=== PATIENT | male | born 1975 | race Caucasian/White ===

== ENCOUNTER 2024-03-05 05:53 | Emergency (ER) | payer SELFPAY ==
[2024-03-05 06:28] LABS: BASOPHILS ABSOLUTE AUTO 0.03 K/uL (0.00-0.20); BASOPHILS PERCENT AUTO 0.3 % (0.0-1.0); EOSINOPHILS ABSOLUTE AUTO 0.09 K/uL (0.00-0.45); HEMATOCRIT 53.7 % (42.0-52.0); HEMOGLOBIN 18.2 g/dL (14.0-18.0); IMMATURE GRAN ABSOLUTE AUTO 0.01 K/uL (0.00-0.05); IMMATURE GRAN PERCENT AUTO 0.1 % (0.0-0.4); LYMPHOCYTES ABSOLUTE AUTO 1.55 K/uL (1.00-4.80); LYMPHOCYTES PERCENT AUTO 16.6 % (24.0-44.0); MEAN CORPUSCULAR HGB CONC 33.9 g/dL (32.0-36.0); MEAN CORPUSCULAR VOLUME 85.5 fL (83.0-99.0); MEAN PLATELET VOLUME 10.1 fL (9.4-12.4); MONOCYTES PERCENT AUTO 5.4 % (0.0-8.0); NEUTROPHILS ABSOLUTE AUTO 7.14 K/uL (1.80-7.70); NEUTROPHILS PERCENT AUTO 76.6 % (41.0-71.0); PLATELET COUNT,PLT 307 K/uL (150-400); RED BLOOD CELL COUNT 6.28 M/uL (4.52-5.90); WHITE BLOOD CELL COUNT,WBC 9.32 K/uL (3.9-11.3)
[2024-03-05] MEDS: Sodium Chloride 0.9% 2.5 ML Syringe FLUSH PRN (06:36)
[2024-03-05] MEDS: Sodium Chloride 0.9% 10 ML Syringe FLUSH PRN (06:36)
[2024-03-05] MEDS: Morphine 4 MG/ML Syringe IVPUSH ONE (06:36)
[2024-03-05 07:04] LABS: ALBUMIN 3.9 g/dL (3.4-5.0); BILIRUBIN TOTAL 0.5 mg/dL (0.2-1.0); CARBON DIOXIDE,CO2 30.5 mmol/L (21.0-32.0); CREATININE 1.5 mg/dL (0.8-1.3); EST CRCL DRUG DOSING (CG) 66.82 mL/min; POTASSIUM,K 5.1 mmol/L (3.5-5.1); PROTEIN TOTAL,TP 7.9 g/dL (6.4-8.2)
[2024-03-05 09:16] LABS: APPEARANCE,URINE CLEAR; BILIRUBIN,URINE NEGATIVE (NEGATIVE); COLOR,URINE YELLOW; GLUCOSE,URINE NEGATIVE (NEGATIVE); KETONES,URINE NEGATIVE (NEGATIVE); LEUKOCYTE ESTERASE,URINE NEGATIVE (NEGATIVE); NITRITE,URINE NEGATIVE (NEGATIVE); OCCULT BLOOD,URINE NEGATIVE (NEGATIVE); PROTEIN,URINE NEGATIVE (NEGATIVE); UROBILINOGEN,URINE 0.2 EU/dL (<2.0)
[2024-03-05] MEDS: Iopamidol 755 MG/ML 500 ML Multipack Bottle IVPUSH STA (11:33)
== END 2024-03-05 09:55 | disposition home or self-care (01) ==
LOC: MW.ED 05:53
DX: R10.13 Epigastric pain (principal); Z75.8 Other problems related to medical facilities and other health care
CPT/HCPCS: 36415; 71045; 74177; 80053; 81003; 83690; 84484; 85025; 93005; 96374; 99285; J2270; J3490; Q9967; 99284

== ENCOUNTER 2024-08-02 12:30 | Emergency (ER) | payer BC | END 2024-08-02 13:05 | disposition home or self-care (01) | LOC: MW.ED 12:30 | DX: Z01.30 Encounter for examination of blood pressure without abnormal findings (principal); F17.210 Nicotine dependence, cigarettes, uncomplicated | CPT/HCPCS: 99283 ==

== ENCOUNTER 2024-11-21 11:21 | Day surgery (SDC) | payer BC ==
[2024-11-21] MEDS ORDERED: propofoL 500 MG/50 ML 50 ML ONE ×3 (11:39→12:30)
[2024-11-21] MEDS: Lactated Ringers 1,000 ML IV SCH (11:50)
[2024-11-21] MEDS ORDERED: Lidocaine 2% 5 ML SDV ONE (12:05)
[2024-11-21] MEDS ORDERED: Midazolam 1 MG/ML 2 ML SDV ONE (12:06)
[2024-11-21] MEDS ORDERED: Ondansetron 4 MG/2 ML SDV ONE (12:31)
[2024-11-21] MEDS ORDERED: Lactated Ringers 1,000 ML IV SCH (13:30)
== END 2024-11-21 13:55 | disposition home or self-care (01) ==
LOC: MW.SDS 11:21
PROVIDERS: ATTEND Surgery
DX: K21.00 Gastro-esophageal reflux disease with esophagitis, without bleeding (principal); K62.1 Rectal polyp; K31.89 Other diseases of stomach and duodenum; K44.9 Diaphragmatic hernia without obstruction or gangrene; G47.30 Sleep apnea, unspecified; F17.290 Nicotine dependence, other tobacco product, uncomplicated
CPT/HCPCS: 43239; 45380; J2250; J2405; J2704; J7120; 00813; J3490

== ENCOUNTER 2024-11-22 04:27 | Emergency (ER) | payer BC ==
[2024-11-22] MEDS: Morphine 4 MG/ML Syringe IVPUSH ONE (05:09)
== END 2024-11-22 05:10 | disposition home or self-care (01) ==
LOC: MW.ED 04:27
DX: R10.13 Epigastric pain (principal); K21.9 Gastro-esophageal reflux disease without esophagitis; E66.9 Obesity, unspecified; Z68.35 Body mass index [BMI] 35.0-35.9, adult; Z79.899 Other long term (current) drug therapy
CPT/HCPCS: 99283

== ENCOUNTER 2025-02-04 23:31 | Emergency (ER) | payer BC, MEDICAID ==
[2025-02-05] MEDS ORDERED: Sodium Chloride 0.9% 2.5 ML Syringe FLUSH PRN (00:29)
[2025-02-05] MEDS ORDERED: Sodium Chloride 0.9% 20 ML SDV IV PRN (00:29)
[2025-02-05] MEDS ORDERED: Sodium Chloride 0.9% 10 ML Syringe FLUSH PRN (00:29)
[2025-02-05 00:36] LABS: BASOPHILS ABSOLUTE AUTO 0.01 K/uL (0.00-0.20); BASOPHILS PERCENT AUTO 0.1 % (0.0-1.0); EOSINOPHILS PERCENT AUTO 0.8 % (0.0-6.0); HEMATOCRIT 49.3 % (42.0-52.0); HEMOGLOBIN 16.8 g/dL (14.0-18.0); IMMATURE GRAN ABSOLUTE AUTO 0.05 K/uL (0.00-0.05); IMMATURE GRAN PERCENT AUTO 0.4 % (0.0-0.4); LYMPHOCYTES ABSOLUTE AUTO 1.59 K/uL (1.00-4.80); MEAN CORPUSCULAR HGB CONC 34.1 g/dL (32.0-36.0); MEAN CORPUSCULAR VOLUME 85.1 fL (83.0-99.0); MEAN PLATELET VOLUME 9.8 fL (9.4-12.4); MONOCYTES PERCENT AUTO 7.4 % (0.0-8.0); NEUTROPHILS ABSOLUTE AUTO 9.54 K/uL (1.80-7.70); NEUTROPHILS PERCENT AUTO 78.3 % (41.0-71.0); PLATELET COUNT,PLT 281 K/uL (150-400); RED BLOOD CELL COUNT 5.79 M/uL (4.52-5.90); WHITE BLOOD CELL COUNT,WBC 12.19 K/uL (3.9-11.3)
[2025-02-05] MEDS: Famotidine 20 MG Tab PO ONE (00:45)
[2025-02-05] MEDS: Sodium Chloride 0.9% 1,000 ML IV ONE (00:45)
[2025-02-05] MEDS: Alum Hydrox/Mag Hydrox/Simeth 15 ML, Lidocaine 2% 5 ML PO ONE (00:45)
[2025-02-05 01:00] LABS: A/G RATIO 1.3 (0.9-1.6); ALBUMIN 4.2 g/dL (3.4-5.0); BILIRUBIN TOTAL 1.6 mg/dL (0.2-1.0); CALCIUM 9.2 mg/dL (8.5-10.1); CARBON DIOXIDE,CO2 26.5 mmol/L (21.0-32.0); CREATININE 1.3 mg/dL (0.8-1.3); EST CRCL DRUG DOSING (CG) 78.53 mL/min; POTASSIUM,K 3.7 mmol/L (3.5-5.1); PROTEIN TOTAL,TP 7.4 g/dL (6.4-8.2)
[2025-02-05] MEDS: Iopamidol 755 MG/ML 500 ML Multipack Bottle IVPUSH ONE (01:10)
[2025-02-05] MEDS: Morphine 4 MG/ML Syringe IVPUSH ONE (02:18)
== END 2025-02-05 04:22 | disposition home or self-care (01) ==
LOC: MW.ED 23:31
DX: R10.13 Epigastric pain (principal); R07.9 Chest pain, unspecified; Z79.899 Other long term (current) drug therapy
CPT/HCPCS: 36415; 71275; 74177; 80053; 83690; 84484; 85025; 93005; 96361; 96374; 99285; A9270; J2270; J7030; Q9967

== ENCOUNTER 2025-04-10 06:29 | Day surgery (SDC) | payer BC ==
[~2025-04-10 06:29] MED LIST: ceFAZolin 2 GM in Water For Injection, Sterile 20 ML IV ONE
[2025-04-10] MEDS: Lactated Ringers 1,000 ML IV SCH (07:09)
[2025-04-10] MEDS ORDERED: Ropivacaine 0.5% 5 MG/ML 30 ML SDV ONE (07:10)
[2025-04-10] MEDS ORDERED: Sodium Chloride 0.9% 20 ML ONE (07:11)
[2025-04-10] MEDS ORDERED: dexmedeTOMIDine HCl 200 MCG/2 ML SDV ONE (07:11)
[2025-04-10] MEDS ORDERED: fentaNYL 100 MCG/2 ML SDV ONE (07:14)
[2025-04-10] MEDS ORDERED: Rocuronium Bromide 50 MG/5 ML Syringe ONE ×2 (07:14→08:26)
[2025-04-10] MEDS ORDERED: Lidocaine 2% 5 ML SDV ONE (07:14)
[2025-04-10] MEDS ORDERED: Propofol 200 MG/20 ML SDV ONE ×2 (07:14→09:18)
[2025-04-10] MEDS ORDERED: Bupivacaine 0.5% 30 ML SDV ONE (07:16)
[2025-04-10] MEDS ORDERED: Midazolam 1 MG/ML 2 ML SDV ONE (07:16)
[2025-04-10] MEDS ORDERED: ceFAZolin 1 GM Vial ONE (08:07)
[2025-04-10] MEDS ORDERED: Dexamethasone 4 MG/ML 5 ML MDV ONE (08:44)
[2025-04-10] MEDS ORDERED: Sugammadex Sodium 200 MG/2 ML VIAL IV ONE (08:44)
[2025-04-10] MEDS ORDERED: Albuterol 0.083% 2.5 MG/3 ML Neb Soln NEB PRN (08:45)
[2025-04-10] MEDS ORDERED: Naloxone 0.4 MG/ML SDV IVPUSH PRN (08:45)
[2025-04-10] MEDS ORDERED: Ondansetron 4 MG/2 ML SDV IVPUSH PRN (08:45)
[2025-04-10] MEDS ORDERED: Phenylephrine HCl In 0.9% NaCl 1 MG/10 ML Syringe IVPUSH PRN (08:45)
[2025-04-10] MEDS ORDERED: Metoclopramide 10 MG/2 ML SDV IVPUSH PRN (08:45)
[2025-04-10] MEDS ORDERED: fentaNYL 50 MCG/ML SDV IVPUSH PRN (08:45)
[2025-04-10] MEDS ORDERED: Morphine 2 MG/ML SYRINGE IVPUSH PRN (08:45)
[2025-04-10] MEDS ORDERED: HYDROmorphone 1 MG/ML Syringe ONE (09:21)
[2025-04-10] MEDS ORDERED: Ketorolac 30 MG/ML SDV ONE (09:28)
[2025-04-10] MEDS ORDERED: Acetaminophen/HYDROcodone 325-5 MG Tab PO PRN (09:37)
[2025-04-10] MEDS ORDERED: Morphine 4 MG/ML Syringe IVPUSH PRN (09:37)
[2025-04-10] MEDS ORDERED: Lactated Ringers 1,000 ML IV SCH (09:45)
[2025-04-10] MEDS: HYDROmorphone 1 MG/ML Syringe IVPUSH PRN (10:07)
== END 2025-04-10 11:25 | disposition home or self-care (01) ==
LOC: MW.SDS 06:29
PROVIDERS: ATTEND Surgery
DX: K80.10 Calculus of gallbladder with chronic cholecystitis without obstruction (principal); K82.8 Other specified diseases of gallbladder; E66.812 Obesity, class 2; F17.210 Nicotine dependence, cigarettes, uncomplicated; Z68.35 Body mass index [BMI] 35.0-35.9, adult; Z79.899 Other long term (current) drug therapy
CPT/HCPCS: 00790; 64488; J0665; J0690; J1100; J1171; J1885; J2003; J2250; J2704; J2795; J3010; J3490; J7120